=== PATIENT | female | born 1940 | race Caucasian/White ===

== ENCOUNTER → 2017-04-28 | Outpatient (CLI) | payer MEDICARE, BC ==
--- NOTE | 2017-04-28 12:10 | REP ---
REASON: Neck pain after trauma. Plain film examination of the cervical spine cannot rule out a fracture. If the patient has been involved in trauma than CT of the cervical spine is recommended. Multiple views of the cervical spine show limitation of flexion and extension. There is disc space narrowing seen at the C4-5 and C5-6 levels. There is anterolisthesis of C6 on C7 of 3.4 mm which is unchanged during flexion and extension. There is retrolisthesis of C4 on C5 of 4.4 mm which is accentuated during extension. Anterior and posterior osteophytic ridging is seen C4-5 causing bilateral C4-5 foraminal encroachment. Vertebral body height is within normal limits. The dens cannot be effectively evaluated secondary to the superimposition of osseous structures and/or dentition on all views. Hypertrophic degenerative facet joint changes and uncovertebral joint changes are present at every level bilaterally. IMPRESSION: 1. Abnormal cervical spine alignment as described above which needs to be evaluated clinically. 2. Plain film examination of the cervical spine cannot rule out a fracture although none is definitely visualized at this time. CT examination of the cervical spine is recommended to rule out a radiographically occult fracture. CT is the goal standard for imaging the cervical spine in patient's with trauma. Signed by Tu Porter DO 04/28/2017 12:14 P
== END ==
LOC: M ADAMS 10:21
PROVIDERS: ATTEND Physician Assistant Medical
DX: S10.93XA Contusion of unspecified part of neck, initial encounter (principal); X58.XXXA Exposure to other specified factors, initial encounter; Y93.9 Activity, unspecified; Y92.9 Unspecified place or not applicable; Y99.8 Other external cause status

== ENCOUNTER → 2017-05-01 | Outpatient (CLI) | payer MEDICARE, BC ==
--- NOTE | 2017-05-01 15:38 | REP ---
CT NECK WITHOUT CONTRAST: HISTORY: Neck pain. The naso-, hiram-, and hypopharynx, larynx and subglottic trachea are normal in appearance. The salivary glands are normal in size and density. A 1.3 cm mixed cystic and solid lesion is present in the right thyroid lobe. The left thyroid lobe is normal. Small lymph nodes less than 1 cm in size are present in the internal jugular chains, posterior triangles, submandibular and submental areas. Atherosclerotic calcification is present at the carotid bifurcations. Degenerative change is present in the cervical spine. The lung apices are clear. The visualized sinuses are clear. IMPRESSION: There is a 1.3 cm mixed cystic/solid lesion in the right thyroid lobe. Ultrasound is recommended for further evaluation. Signed by Angel James MD 05/01/2017 03:44 P
== END ==
LOC: M RAD 14:28
PROVIDERS: ATTEND Family Medicine
DX: M54.2 Cervicalgia (principal); E04.1 Nontoxic single thyroid nodule
CPT/HCPCS: 70490; G0463

== ENCOUNTER → 2017-05-04 | Outpatient (CLI) | payer MEDICARE, BC ==
--- NOTE | 2017-05-04 11:23 | REP ---
CT CERVICAL SPINE WITHOUT CONTRAST: HISTORY: Neck pain. There is no acute fracture. A disc bulge is present at the C3-4 level. Disc bulges with associated osteophyte formation are present at the C4-5 and C5-6 levels. There is minimal narrowing of the spinal canal. Uncinate process and/or facet hypertrophy are present at the C4-5 through C6-7 levels. These findings produce minimal to moderate narrowing of the neural foramina. The C4-5 through C6-7 intervertebral discs are decreased in height consistent with disc degeneration. There are 2 mm of anterior subluxation of C6 on 7. A 1.2 cm hypodensity is present in the right thyroid lobe. This most likely represents a cyst. The left thyroid lobe is normal in appearance. IMPRESSION: 1. There is cervical spondylosis at the C3-4 through C6-7 levels. 2. There is a 1.2 cm hypodensity in the right thyroid lobe. This most likely represents a cyst. Ultrasound may be helpful for further evaluation. Signed by Angel James MD 05/04/2017 11:28 A
== END ==
LOC: M RAD 09:50
PROVIDERS: ATTEND Family Medicine
DX: M47.812 Spondylosis without myelopathy or radiculopathy, cervical region (principal); R93.8 Abnormal findings on diagnostic imaging of other specified body structures

== ENCOUNTER → 2018-06-04 | Outpatient (REF) | payer MEDICARE, BC ==
[2018-06-04 19:42] LABS: BASO % 0.5 % (0.0-1.0); EOS # 0.1 10^3/uL (0.0-0.50); EOS % 1.2 % (0.0-3.0); HEMATOCRIT 41.9 % (36.0-47.0); HEMOGLOBIN 13.3 g/dl (12.0-15.5); IMMATURE GRANULOCYTE % 0.1 % (0-3.0); LYMPH # 1.4 10^3/uL (1.5-4.5); LYMPH % 18.9 % (24.0-44.0); MEAN CORPUSCULAR HEMOGLOBIN 27.9 pg (27.0-33.0); MEAN CORPUSCULAR HGB CONC 31.7 g/dl (32.0-36.5); MONO # 0.6 10^3/uL (0.0-0.8); MONO % 8.3 % (0.0-5.0); NEUTROPHILS # 5.2 10^3/uL (1.8-7.7); PLATELET COUNT, AUTOMATED 314 10^3/uL (150-450); RED BLOOD COUNT 4.76 10^6/uL (4.00-5.40); RED CELL DISTRIBUTION WIDTH 14.4 % (11.5-14.5); WHITE BLOOD COUNT 7.3 10^3/uL (4.0-10.0)
[2018-06-04 19:59] LABS: ALBUMIN 3.7 GM/DL (3.2-5.2); ALBUMIN/GLOBULIN RATIO 1.19 (1.00-1.93); ALKALINE PHOSPHATASE 100 U/L (45-117); ALT/SGPT 32 U/L (12-78); ANION GAP 6 MEQ/L (8-16); AST/SGOT 20 U/L (7-37); BILIRUBIN,TOTAL 0.4 MG/DL (0.2-1.0); BLOOD UREA NITROGEN 17 MG/DL (7-18); CALCIUM LEVEL 8.8 MG/DL (8.8-10.2); CARBON DIOXIDE LEVEL 31 MEQ/L (21-32); CHLORIDE LEVEL 104 MEQ/L (98-107); CREATININE FOR GFR 0.87 MG/DL (0.55-1.30); FREE T4 0.98 NG/DL (0.76-1.46); GLOMERULAR FILTRATION RATE > 60.0 (>39); GLUCOSE, FASTING 96 MG/DL (70-100); SODIUM LEVEL 141 MEQ/L (136-145); THYROID STIMULATING HORMONE 0.786 uIU/ML (0.358-3.740); TOTAL PROTEIN 6.8 GM/DL (6.4-8.2)
== END ==
LOC: M SFHCADAM 12:37
DX: R53.83 Other fatigue (principal)
CPT/HCPCS: 84443

== ENCOUNTER → 2018-06-11 | Outpatient (CLI) | payer MEDICARE, BC | LOC: M RAD 11:36 | DX: E04.2 Nontoxic multinodular goiter (principal) | CPT/HCPCS: 76536 ==